=== PATIENT | female | born 1985 | race Caucasian/White ===

== ENCOUNTER 2017-09-07 00:01 | Inpatient (IN) | payer OTHER ==
[~2017-09-07] VITALS: Ht 160 cm; Wt 65.3 kg
[2017-09-07] MEDS ORDERED: OXYTOCIN/NORMAL SALINE 1,000 ML IV SCH (01:24)
[2017-09-07] MEDS ORDERED: TERBUTALINE SULFATE 1 MG/ML VIAL SUBCUT ONE (01:30)
[2017-09-07] MEDS: LR 1,000 ML IV SCH ×2 (01:45→06:22)
[2017-09-07 02:03] LABS: BASOPHILS % (AUTO) 0.2 % (0.0-2.0); EOSINOPHILS # (AUTO) 0.1 K/uL (0.0-0.4); EOSINOPHILS % (AUTO) 0.6 % (0.0-4.0); HEMATOCRIT 37.8 % (36-48); HEMOGLOBIN 12.4 g/dL (12.0-16.0); LYMPHOCYTES # (AUTO) 1.9 K/uL (1.0-5.5); LYMPHOCYTES % (AUTO) 17.3 % (20.5-51.5); MEAN CORPUSCULAR HEMOGLOBIN 30 pg (27-31); MEAN CORPUSCULAR HGB CONC 33 % (32-36); MEAN CORPUSCULAR VOLUME 92 fL (79.0-98.0); MONOCYTES # (AUTO) 0.7 K/uL (0.0-1.0); MONOCYTES % (AUTO) 6.7 % (1.7-9.3); NEUTROPHILS # (AUTO) 8.5 K/uL (1.8-7.7); NEUTROPHILS % (AUTO) 75.2 % (40.0-70.0); PLATELET COUNT (AUTO) 193 K/uL (130-430); RED BLOOD CELL COUNT(AUTO) 4.13 MIL/uL (4.2-6.2); RED CELL DISTRIBUTION WIDTH 13.4 % (9.0-15.0); WHITE BLOOD COUNT (AUTO) 11.2 K/uL (4.8-10.8)
[2017-09-07 07:41] VITALS: BP_SYST 118
[2017-09-07] MEDS: NALBUPHINE HCL 10 MG/ML AMP IVP PRN (23:17)
[2017-09-08] MEDS: NALBUPHINE HCL 10 MG/ML AMP IVP PRN ×2 (01:43→04:04)
[2017-09-08] MEDS ORDERED: FENT2mCg/mL-ROPIVA0.2%/NS EPID 150 ML EP ONE (07:22)
[2017-09-08] MEDS ORDERED: LR 500 ML IV ONE (08:00)
[2017-09-08] MEDS ORDERED: ePHEDrine sulfate 50 MG/ML VIAL IVP PRN (08:00)
[2017-09-08] MEDS ORDERED: ROPIVACAINE 0.2% EP SCH (08:00)
[2017-09-08] MEDS ORDERED: FENTANYL CITRATE EP SCH (08:00)
[2017-09-08] MEDS ORDERED: ACETAMINOPHEN 325 MG TABLET PO PRN ×2 (12:45→16:30)
[2017-09-08] MEDS ORDERED: GENTAMICIN 80 mg/100 mL NS 100 ML IV SCH (13:30)
[2017-09-08] MEDS ORDERED: AMPICILLIN SODIUM 2 GM in NS 100 ML IV SCH (13:30)
[2017-09-08] MEDS ORDERED: OXYTOCIN/NORMAL SALINE 1,000 ML IV SCH (16:18)
[2017-09-08] MEDS ORDERED: OXYTOCIN/NORMAL SALINE 1,000 ML IV ONE (16:18)
[2017-09-08] MEDS ORDERED: SENNOSIDES/DOCUSATE SODIUM 1 TAB TABLET(SENOKOT-S) PO PRN (16:30)
[2017-09-08] MEDS ORDERED: MEASLES,MUMPS&RUBELLA VACC/PF 12500 UNIT/0.5 ML VIAL SUBQ PRN (16:30)
[2017-09-08] MEDS ORDERED: DERMOPLAST SPRAY TP PRN (16:30)
[2017-09-08] MEDS ORDERED: OXYCODONE/ACETAMINOPHEN 5-325 TABLET PO PRN ×2 (16:30)
[2017-09-08] MEDS ORDERED: LANOLIN 7 GM OINT. TP PRN (16:30)
[2017-09-08] MEDS ORDERED: GLYCERIN/WITCH HAZEL (TUCKS PADS) TP PRN (16:30)
[2017-09-08] MEDS ORDERED: HYDROCORTISONE 0.5%, 28.35 GM TOPICAL CREAM TP PRN (16:30)
[2017-09-08] MEDS ORDERED: METHYLERGONOVINE MALEATE 0.2 MG TABLET PO PRN (16:30)
[2017-09-08] MEDS ORDERED: RHO(D) IMMUNE GLOBULIN/MALTOSE 1500 UNITS/1.3 ML (WINHRO) IM PRN (16:30)
[2017-09-08] MEDS: IBUPROFEN 600 MG TABLET PO SCH (18:03)
[2017-09-08] MEDS ORDERED: TEMAZEPAM 15 MG CAPSULE PO PRN (21:00)
[2017-09-08] MEDS ORDERED: DOCUSATE SODIUM 100 MG CAPSULE PO SCH (22:00)
[2017-09-09] MEDS: IBUPROFEN 600 MG TABLET PO SCH ×3 (00:02→06:02)
[2017-09-09 07:30] LABS: HEMATOCRIT 30.1 % (36-48); HEMOGLOBIN 10.1 g/dL (12.0-16.0)
[2017-09-09] MEDS ORDERED: AMPICILLIN SODIUM 2 GM in NS 100 ML IV ONE (08:30)
[2017-09-09] MEDS ORDERED: AMPICILLIN SODIUM 1 GM in NS 50 ML IV SCH (08:30)
[2017-09-09 08:38] VITALS: BP_SYST 123
[2017-09-09] MEDS ORDERED: MINERAL OIL 30 ML UDC PO ONE (18:43)
[2017-09-10] MEDS: IBUPROFEN 600 MG TABLET PO SCH (06:00)
== END 2017-09-10 18:30 | disposition home or self-care (01) | DRG 775 ==
LOC: SPU 00:01
PROVIDERS: ADMIT Obstetrics & Gynecology; ATTEND Obstetrics & Gynecology
PROC: 10E0XZZ Delivery of Products of Conception, External Approach (ICD-10-PCS; principal; 2017-09-08)
PROC: 0KQM0ZZ Repair Perineum Muscle, Open Approach (ICD-10-PCS; 2017-09-08)
PROC: 3E0R3BZ Introduction of Anesthetic Agent into Spinal Canal, Percutaneous Approach (ICD-10-PCS; 2017-09-08)
PROC: 00HU33Z Insertion of Infusion Device into Spinal Canal, Percutaneous Approach (ICD-10-PCS; 2017-09-08)
PROC: 3E0134Z Introduction of Serum, Toxoid and Vaccine into Subcutaneous Tissue, Percutaneous Approach (ICD-10-PCS; 2017-09-08)
DX: O75.89 Other specified complications of labor and delivery (principal); Z23 Encounter for immunization; Z37.0 Single live birth; O70.1 Second degree perineal laceration during delivery; Z3A.39 39 weeks gestation of pregnancy
CPT/HCPCS: 36415; 81002-TC; 85018-TC; 85025; 86592; 86886; 86900; 86901; J0290; J1580; J2300; J2590; J3010; J7120